=== PATIENT | female | born 2000 | race Caucasian/White ===

== ENCOUNTER 2020-10-05 16:03 | Emergency (ER) | payer BC, OTHER ==
[~2020-10-05] VITALS: Ht 165.1 cm; Wt 81.7 kg
[2020-10-05] MEDS ORDERED: FLEXERIL PO (18:16)
[2020-10-05] MEDS ORDERED: TYLENOL325 M1 PO (18:16)
[2020-10-05] MEDS ORDERED: NAPROSYN500 MG PO (18:16)
[2020-10-05 18:33] VITALS: BP 145/102
== END 2020-10-05 18:33 | disposition home or self-care (01) ==
LOC: ER 16:03
DX: S46.912A Strain of unspecified muscle, fascia and tendon at shoulder and upper arm level, left arm, initial encounter (principal); S16.1XXA Strain of muscle, fascia and tendon at neck level, initial encounter; Z88.5 Allergy status to narcotic agent; X50.0XXA Overexertion from strenuous movement or load, initial encounter; Y93.89 Activity, other specified; Y92.89 Other specified places as the place of occurrence of the external cause; Y99.8 Other external cause status